=== PATIENT | female | born 1945 | race Two or more races ===

== ENCOUNTER 2017-08-13 17:45 | Emergency (ER) | payer MEDICARE ==
[~2017-08-13] VITALS: Ht 177.8 cm; Wt 89.0 kg
[2017-08-13 21:58] VITALS: BP 141/76
== END 2017-08-13 22:05 | disposition home or self-care (01) ==
LOC: ER 18:02
DX: M71.22 Synovial cyst of popliteal space [Baker], left knee (principal); I10 Essential (primary) hypertension; Z87.891 Personal history of nicotine dependence
CPT/HCPCS: 93971; 99284